=== PATIENT | male | born 1985 | race African-American/Black ===

== ENCOUNTER 2019-10-21 01:11 | Emergency (ER) | payer SELFPAY ==
[~2019-10-21] VITALS: Ht 190.5 cm; Wt 118.0 kg
[2019-10-21] MEDS ORDERED: ONDANSETRON HCL 4MG/2ML INJ IV STA (02:07)
[2019-10-21] MEDS ORDERED: SODIUM CHLORIDE 0.9% 1,000 ML IV ONE (02:07)
[2019-10-21] MEDS ORDERED: LEVETIRACETAM 1000MG/100ML 100 ML IV ONE (02:15)
[2019-10-21] MEDS ORDERED: LORAZEPAM 2MG/ML CPJ IV ONE (02:15)
[2019-10-21 02:31] LABS: CHLORIDE 107 mEq/L (98-107)
[2019-10-21 02:32] LABS: BASOPHILS % 0.5 % (0.0-2.0); EOSINOPHILS % 3.6 % (0.0-5.0); HEMATOCRIT. 45.3 % (42.0-52.0); HEMOGLOBIN. 15.2 g/dL (14.0-18.0); LYMPHOCYTES % 9.7 % (20.0-50.0); MEAN CORPUSCULAR HEMOGLOBIN 31.2 pg (28.0-32.0); MEAN CORPUSCULAR VOLUME 92.8 fL (80.0-94.0); MEAN PLATELET VOLUME 8.4 fl (7.4-10.4); NEUTROPHILS % 80.2 % (40.0-76.0); PLATELET 203 x1000/uL (130-400); RED BLOOD CELL COUNT 4.88 mill/uL (4.7-6.1); RED CELL DISTRIBUTION WIDTH 13.2 % (11.6-14.6)
[2019-10-21 02:35] LABS: ETHANOL BLOOD < 10 mg/dL
[2019-10-21 07:02] VITALS: BP 148/99
== END 2019-10-21 07:04 | disposition home or self-care (01) ==
LOC: ER 01:11
DX: G40.909 Epilepsy, unspecified, not intractable, without status epilepticus (principal); R03.0 Elevated blood-pressure reading, without diagnosis of hypertension; R00.1 Bradycardia, unspecified
CPT/HCPCS: 36415; 70450; 80053; 80320; 82962; 85025; 93005; 96365; 96375; 99284; J1953; J2060; J2405; J7030; Z7610; G0480